=== PATIENT | male | born 1995 | race African-American/Black ===

== ENCOUNTER 2016-08-31 18:07 | Inpatient (IN) | payer OTHER ==
[~2016-08-31] VITALS: Ht 177.8 cm; Wt 91.9 kg
[2016-08-31 18:08] VITALS: BP 162/88; PULSE 68; RESP 12; TEMP 98.4; O2SAT 97
--- NOTE | 2016-08-31 21:40 | PD ---
HPI Chief Complaint: Complaint Time Seen by Provider: 21:40 Travel History International Travel<30 days: No Contact w/Intl Traveler<30days: No Traveled to known affect area: No History of Present Illness HPI 21 year old male with no significant history presents to the ED for evaluation of dark brown urine x 1 today, myalgias and swelling of his proximal upper extremities noticed two days ago. Patient states they noticed this today. Patient states he has otherwise been healthy. 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 He believes he has been drinking enough water but isn't sure. Denies any recent illnesses, fever, or chills. Denies any penile discharge. No burning with urination. No abdominal pain, nausea, vomiting. No other symptoms to report. PFSH Past Medical History Medical History: Denies Significant Hx Past Surgical History Other Surgery: Yes Social History Alcohol Use: Yes Tobacco Use: No Substance Use: No Allergies-Medications (Allergen,Severity, Reaction): Coded Allergies: No Known Allergies (Unverified , 08/31/16) Reported Meds & Prescriptions Reported Meds & Active Scripts Active No Active Prescriptions or Reported Medications Review of Systems Except as stated in HPI: all other systems reviewed are Neg Physical Exam Narrative GENERAL: Well-nourished male patient, ambulatory and in no acute distress SKIN: Warm and dry. HEAD: Atraumatic. Normocephalic. EYES: Pupils equal and round. No scleral icterus. No injection or drainage. ENT: No nasal bleeding or discharge. Mucous membranes pink and moist. NECK: Trachea midline. No JVD. CARDIOVASCULAR: Regular rate and rhythm. No murmur appreciated. RESPIRATORY: No accessory muscle use. Clear to auscultation. Breath sounds equal bilaterally. GASTROINTESTINAL: Abdomen soft, non-tender, nondistended. Hepatic and splenic margins not palpable. MUSCULOSKELETAL: No obvious deformities. No clubbing. No cyanosis. Tenderness elicited to palpation of the proximal upper extremities and shoulders with non pitting edema noted of the bilateral upper extremities NEUROLOGICAL: Awake and alert. No obvious cranial nerve deficits. Motor grossly within normal limits. Normal speech. PSYCHIATRIC: Appropriate mood and affect; insight and judgment normal. Data Data Last Documented VS Vital Signs Date Time Temp Pulse Resp B/P Pulse Ox O2 Delivery O2 Flow Rate FiO2 08/31/16 18:08 98.4 68 12 162/88 97 Room Air Orders Iv Access Insert/Monitor (08/31/16 21:39) Complete Blood Count With Diff (08/31/16 21:39) Basic Metabolic Panel (Bmp) (08/31/16 21:39) Creatine Kinase (Cpk) (08/31/16 21:39) Urinalysis - C+S If Indicated (08/31/16 21:39) Sodium Chlor 0.9% 1000 Ml Inj (Ns 1000 M (08/31/16 21:45) Sodium Chlor 0.9% 1000 Ml Inj (Ns 1000 M (08/31/16 21:45) CKMB (08/31/16 22:05) CKMB% (08/31/16 22:05) Sodium Chlor 0.9% 1000 Ml Inj (Ns 1000 M (09/01/16 00:15) Admit Order (Ed Use Only) (09/01/16 00:24) Labs Laboratory Tests Test 08/31/16 22:05 White Blood Count 13.7 TH/MM3 Red Blood Count 5.31 MIL/MM3 Hemoglobin 16.1 GM/DL Hematocrit 47.3 % Mean Corpuscular Volume 89.0 FL Mean Corpuscular Hemoglobin 30.3 PG Mean Corpuscular Hemoglobin 34.1 % Concent Red Cell Distribution Width 13.7 % Platelet Count 245 TH/MM3 Mean Platelet Volume 9.0 FL Neutrophils (%) (Auto) 72.2 % Lymphocytes (%) (Auto) 22.0 % Monocytes (%) (Auto) 4.1 % Eosinophils (%) (Auto) 1.3 % Basophils (%) (Auto) 0.4 % Neutrophils # (Auto) 9.9 TH/MM3 Lymphocytes # (Auto) 3.0 TH/MM3 Monocytes # (Auto) 0.6 TH/MM3 Eosinophils # (Auto) 0.2 TH/MM3 Basophils # (Auto) 0.1 TH/MM3 CBC Comment DIFF FINAL Differential Comment Urine Color DARK-RED Urine Turbidity HAZY Urine pH 6.0 Urine Specific [place] 1.036 Urine Protein 100 mg/dL Urine Glucose (UA) NEG mg/dL Urine Ketones TRACE mg/dL Urine Occult Blood LARGE Urine Nitrite NEG Urine Bilirubin NEG Urine Urobilinogen LESS THAN 2.0 MG/DL Urine Leukocyte Esterase TRACE Urine RBC LESS THAN 1 /hpf Urine WBC 3 /hpf Urine Bacteria RARE /hpf Urine Mucus MANY /lpf Microscopic Urinalysis Comment CULT NOT INDICATED Sodium Level 138 MEQ/L Potassium Level 4.2 MEQ/L Chloride Level 103 MEQ/L Carbon Dioxide Level 29.6 MEQ/L Anion Gap 5 MEQ/L Blood Urea Nitrogen 14 MG/DL Creatinine 1.16 MG/DL Estimat Glomerular Filtration 96 ML/MIN Rate Random Glucose 98 MG/DL Calcium Level 8.5 MG/DL Total Creatine Kinase GREATER THAN 31315 U/L Creatine Kinase MB 32.0 NG/ML Creatine Kinase MB % 0.0 % MDM Medical Decision Making Medical Screen Exam Complete: Yes Emergency Medical Condition: Yes Medical Record Reviewed: Yes Differential Diagnosis rhabdomyolysis versus electrolyte abnormality versus influenza versus viral syndrome versus UTI Narrative Course 21-year-old male presents to emergency department for evaluation of dark urine, shoulder pain, and swelling of the proximal upper extremities. Vital signs are stable. Patient is given normal saline bolus. Patient does appear overall well however does have noted upper extremity edema. CBCs with mild leukocytosis of 13.7. BMP is without acute concern. Urinalysis is hazy, dark red, proteinuria 100, trace ketones, large occult blood, trace leukocyte E[place]ace , less than 1 RBC, rare bacteria, many mucus. Culture is not indicated. Total CK is greater than 14,000. I discussed the patient my attending physician Dr. Parsons. Patient is discussed with Dr. Boyer. Patient will be admitted to her service. Diagnosis Primary Impression: Rhabdomyolysis Qualified Code: M62.82 - Non-traumatic rhabdomyolysis Admitting Information Admitting Physician Requests: Admit Scripts No Active Prescriptions or Reported Meds Condition: Stable Aura Harris Aug 31, 2016 21:40
[2016-08-31] MEDS ORDERED: SODIUM CHLOR 0.9% 1000 ML INJ 1,000 ML IV ONE ×2 (21:45)
[2016-08-31 22:28] LABS: AUTOMATED NEUTROPHIL # 9.9 TH/MM3 (1.8-7.7); BASOPHIL # 0.1 TH/MM3 (0-0.2); BASOPHIL % 0.4 % (0.0-2.0); EOSINOPHIL # 0.2 TH/MM3 (0-0.4); EOSINOPHIL % 1.3 % (0.0-4.0); HEMATOCRIT 47.3 % (39.0-51.0); HEMO FLAGS DIFF FINAL; MEAN CORPUSCULAR HEMOGLOBIN 30.3 PG (27.0-34.0); MEAN CORPUSCULAR HGB CONC 34.1 % (32.0-36.0); MONO % 4.1 % (0.0-8.0); NEUT % 72.2 % (16.0-70.0); PLATELET COUNT 245 TH/MM3 (150-450); RED BLOOD COUNT 5.31 MIL/MM3 (4.50-5.90); RED CELL DISTRIBUTION WIDTH 13.7 % (11.6-17.2); WHITE BLOOD COUNT 13.7 TH/MM3 (4.0-11.0)
[2016-08-31 22:30] LABS: BACTERIA, URINE RARE /hpf; BLOOD, URINE LARGE (NEG); COMMENT (UR) CULT NOT INDICATED; CULTURE IF INDICATED CULT NOT INDICATED; GLUCOSE,URINE NEG (NEG); KETONE, URINE TRACE mg/dL (NEG); MUCUS URINE MANY /lpf (OCC); NITRITE,URINE NEG (NEG)
[2016-08-31 22:34] LABS: URINE COLOR DARK-RED (YELLW/STRAW)
[2016-08-31 23:14] LABS: ANION GAP 5 MEQ/L (5-15); BICARBONATE 29.6 MEQ/L (21.0-32.0); BLOOD UREA NITROGEN 14 MG/DL (7-18); CHLORIDE 103 MEQ/L (98-107); GLOMERULAR FILTRATION RATE 96 ML/MIN (>89); POTASSIUM 4.2 MEQ/L (3.5-5.1); SODIUM (NA) 138 MEQ/L (136-145)
[2016-09-01] VITALS (7 sets, daily range): BP systolic 129–157; BP diastolic 79–97; PULSE 67–89; RESP 16–18; TEMP 97.4–98.8; O2SAT 98–100
[2016-09-01 00:10] LABS: CREATINE KINASE GREATER THAN 14000 U/L (39-308)
[2016-09-01] MEDS ORDERED: SODIUM CHLOR 0.9% 1000 ML INJ 1,000 ML IV ONE (00:15)
[2016-09-01] MEDS: SODIUM CHLOR 0.9% 1000 ML INJ 1,000 ML IV SCH ×5 (01:02→19:05)
[2016-09-01] MEDS ORDERED: SODIUM CHLORIDE 0.9% FLUSH 5 ML FLUSH FLUSH PRN (01:15)
[2016-09-01] MEDS ORDERED: NALOXONE HCL 0.4 MG/ML AMP IV PRN (01:15)
--- NOTE | 2016-09-01 03:02 | HHI.HP ---
[facility] No Primary Care Physician Admission Diagnosis rhabdomyolysis Diagnoses: Chief Complaint: Urine color is dark, cannot lift up my arms Travel History International Travel<30 Days: No Contact w/Intl Traveler <30 Da: No Traveled to Known Affected Are: No History of Present Illness History from patient, ER physician to medication, and review of medical records. Patient reported that he initially came to the hospital because his urine color was so dark that it looks like [employer]. He reports he also was not able to lift up his arms because they have been so painful. He states his arm size is actually increased bilaterally. He admits to working out with heavy weight lifting about 3-4 hours a day. Denies fever. denies any nausea/vomiting/diarrhea/urinary burning or pain on urination. denies any decrease in urine. Denies any chest pain/palpitations/shortness of breath/syncopal episodes. Denies any falls or seizures. Denies any hematemesis/hematochezia/melena/hematuria. Review of Systems Other 12 point review of system is obtained and is negative apart from what is mentioned in HPI Past Family Social History Past Medical History None Past Surgical History None Reported Medications None Allergies: Coded Allergies: No Known Allergies (Unverified , 08/31/16) Family History Reports a family history of diabetes in maternal grandmother and paternal grandfather Social History Denies smoking/alcohol abuse/drug abuse. Physical Exam Vital Signs Vital Signs Date Time Temp Pulse Resp B/P Pulse Ox O2 Delivery O2 Flow Rate FiO2 08/31/16 18:08 98.4 68 12 162/88 97 Room Air Physical Exam GENERAL: This is a well-nourished, well-developed patient, in no apparent distress. SKIN: No rashes, ecchymoses or lesions. Cool and dry. HEAD: Atraumatic. Normocephalic. No temporal or scalp tenderness. EYES: No scleral icterus. No injection or drainage. ENT: Nose without bleeding, purulent drainage or septal hematoma. Airway patent. NECK: Trachea midline. No JVD CARDIOVASCULAR: Regular rate and rhythm without murmurs, gallops, or rubs. RESPIRATORY: Clear to auscultation. Breath sounds equal bilaterally. No wheezes , rales, or rhonchi. GASTROINTESTINAL: Abdomen soft, non-tender, nondistended. No guarding. MUSCULOSKELETAL: Extremities without clubbing, cyanosis, or edema. No calf tenderness. Bilateral upper extremity biceps with significant tenderness even on light palpation. Patient is able to move his arms [id number] but was having quite a bit of difficulty lifting his arms against gravity. NEUROLOGICAL: Awake and alert. Motor and sensory grossly within normal limits apart from bilateral upper extremity against gravity as above. Normal speech. Laboratory Laboratory Tests Test 08/31/16 22:05 White Blood Count 13.7 Red Blood Count 5.31 Hemoglobin 16.1 Hematocrit 47.3 Mean Corpuscular Volume 89.0 Mean Corpuscular Hemoglobin 30.3 Mean Corpuscular Hemoglobin 34.1 Concent Red Cell Distribution Width 13.7 Platelet Count 245 Mean Platelet Volume 9.0 Neutrophils (%) (Auto) 72.2 Lymphocytes (%) (Auto) 22.0 Monocytes (%) (Auto) 4.1 Eosinophils (%) (Auto) 1.3 Basophils (%) (Auto) 0.4 Neutrophils # (Auto) 9.9 Lymphocytes # (Auto) 3.0 Monocytes # (Auto) 0.6 Eosinophils # (Auto) 0.2 Basophils # (Auto) 0.1 CBC Comment DIFF FINAL Differential Comment Urine Color DARK-RED Urine Turbidity HAZY Urine pH 6.0 Urine Specific [place] 1.036 Urine Protein 100 Urine Glucose (UA) NEG Urine Ketones TRACE Urine Occult Blood LARGE Urine Nitrite NEG Urine Bilirubin NEG Urine Urobilinogen LESS THAN 2.0 Urine Leukocyte Esterase TRACE Urine RBC LESS THAN 1 Urine WBC 3 Urine Bacteria RARE Urine Mucus MANY Microscopic Urinalysis Comment CULT NOT INDICATED Sodium Level 138 Potassium Level 4.2 Chloride Level 103 Carbon Dioxide Level 29.6 Anion Gap 5 Blood Urea Nitrogen 14 Creatinine 1.16 Estimat Glomerular Filtration 96 Rate Random Glucose 98 Calcium Level 8.5 Total Creatine Kinase GREATER THAN 44109 Creatine Kinase MB 32.0 Creatine Kinase MB % 0.0 Result Diagram: 08/31/16220408/31/162204 Assessment and Plan Problem List: (1) Rhabdomyolysis ICD Code: M62.82 Status: Acute Assessment and Plan Impression: Rhabdomyolysis Leukocytosis with left shiftlikely nonspecificstress-induced/dehydration Plan: Aggressive IV hydration. Patient received 3 L normal saline bolus in ER. Will continue hydration at 250 cc per hour. Patient's serum bicarbonate is almost 30. His renal function is normal as well. At this point, I would not start him on bicarbonate drip yet. However if he does not improve or if renal function worsens, we'll consider starting him on IV bicarbonate drip. BMP in a.m. DVT prophylaxiswith Lovenox. Discussed Condition With Patient, ER physician, patient's nurse Physician Certification 2 Midnight Certification Type: Admission for Inpatient Services Order for Inpatient Services The services are ordered in accordance with Medicare regulations or non- Medicare payer requirements, as applicable. In the case of services not specified as inpatient-only, they are appropriately provided as inpatient services in accordance with the 2-midnight benchmark. Estimated LOS (days): 3 days is the estimated time the patient will need to remain in the hospital, assuming treatment plan goals are met and no additional complications. Post-Hospital Plan: Home Problem Qualifiers (1) Rhabdomyolysis: Qualified Code: M62.82 - Non-traumatic rhabdomyolysis Abimbola Boyer MD Sep 01, 2016 03:02
[2016-09-01 04:41] LABS: CREATINE KINASE GREATER THAN 14000 U/L (39-308)
[2016-09-01 05:19] LABS: CKMB 25.3 NG/ML (0.5-3.6)
[2016-09-01] MEDS: ENOXAPARIN SODIUM 40 MG/0.4 ML SYRINGE SQ SCH (08:46)
[2016-09-01] MEDS: SODIUM CHLORIDE 0.9% FLUSH 5 ML FLUSH FLUSH SCH ×2 (08:46→21:00)
--- NOTE | 2016-09-01 09:40 | HHI.PR ---
Subjective Remarks Patient states he has continued muscle aches. No symptom improvement overnight. He said mild swelling of the left arm with IV fluid hydration. Objective Vitals Vital Signs Date Time Temp Pulse Resp B/P Pulse Ox O2 Delivery O2 Flow Rate FiO2 09/01/16 07:30 98.0 81 18 152/79 98 Room Air 09/01/16 06:00 67 18 129/95 99 Room Air 08/31/16 18:08 98.4 68 12 162/88 97 Room Air I/O 08/31/16 08/31/16 08/31/16 09/01/16 09/01/16 09/01/16 07:00 15:00 23:00 07:00 15:00 23:00 Intake Total 200 ml Output Total 250 ml 400 ml Balance -250 ml -200 ml Intake Oral 200 ml Output Urine Total 250 ml 400 ml # Voids 1 # Bowel Movements 0 Result Diagram: 08/31/16220408/31/162204 Objective Remarks GENERAL: This is a well-nourished, well-developed , muscular patient, in no apparent distress. CARDIOVASCULAR: Regular rate and rhythm RESPIRATORY: Clear to auscultation. Breath sounds equal bilaterally. No wheezes , rales, or rhonchi. GASTROINTESTINAL: Abdomen soft, non-tender, nondistended. Normal active bowel sounds MUSCULOSKELETAL: Extremities without clubbing, cyanosis, or edema. NEURO: Alert & Oriented x4 to person, place, time, situation. Moves all ext x4 A/P Problem List: (1) Rhabdomyolysis ICD Code: M62.82 Status: Acute Assessment and Plan 1. Rhabdomyolysis - continue aggressive IV fluid hydration and monitoring his CPK. Continue to monitor renal function and patient's clinical progression. Patient has been working out extensively and training. Safe practices for work all and training and exercise education provided today and prevention of future rhabdomyolysis. Patient states that he has been training indoors has not been exposed to outside heat. 2. Leukocytosis with left shiftlikely nonspecificstress-induced/dehydration 3. DVT prophylaxisLovenox. Problem Qualifiers (1) Rhabdomyolysis: Qualified Code: M62.82 - Non-traumatic rhabdomyolysis Maryann Nuno MD Sep 01, 2016 09:40
[2016-09-01 10:15] LABS: CREATINE KINASE GREATER THAN 14000 U/L (39-308)
[2016-09-01 10:29] LABS: CKMB 28.2 NG/ML (0.5-3.6)
[2016-09-02] VITALS: BP 146/93; PULSE 64; RESP 16; TEMP 98; O2SAT 100
[2016-09-02] MEDS: SODIUM CHLOR 0.9% 1000 ML INJ 1,000 ML IV SCH ×4 (01:35→18:20)
[2016-09-02 04:00] VITALS: BP 142/67; PULSE 82; RESP 16; TEMP 96.6; O2SAT 96
[2016-09-02 07:43] LABS: POTASSIUM 3.9 MEQ/L (3.5-5.1)
[2016-09-02 08:00] VITALS: BP 130/81; PULSE 72; RESP 18; TEMP 97.6; O2SAT 100
[2016-09-02] MEDS: SODIUM CHLORIDE 0.9% FLUSH 5 ML FLUSH FLUSH SCH ×2 (09:00→21:00)
[2016-09-02] MEDS: ENOXAPARIN SODIUM 40 MG/0.4 ML SYRINGE SQ SCH (09:44)
[2016-09-02 11:41] LABS: ANION GAP 7 MEQ/L (5-15); BICARBONATE 29.4 MEQ/L (21.0-32.0); BLOOD UREA NITROGEN 5 MG/DL (7-18); CHLORIDE 104 MEQ/L (98-107); GLOMERULAR FILTRATION RATE 142 ML/MIN (>89); POTASSIUM 3.8 MEQ/L (3.5-5.1); SODIUM (NA) 140 MEQ/L (136-145)
[2016-09-02 11:50] LABS: CREATINE KINASE GREATER THAN 14000 U/L (39-308)
[2016-09-02 12:00] VITALS: BP 144/78; PULSE 68; RESP 18; TEMP 97.5; O2SAT 99
[2016-09-02 12:37] LABS: CKMB 21.6 NG/ML (0.5-3.6)
--- NOTE | 2016-09-02 15:01 | HHI.PR ---
Subjective Remarks Doing much better. Urine has cleared up a little bit, urine is not as dark. Less pain. Ambulate in the room. No other complaints Objective Vitals Vital Signs Date Time Temp Pulse Resp B/P Pulse Ox O2 Delivery O2 Flow Rate FiO2 09/02/16 12:00 97.5 68 18 144/78 99 09/02/16 08:00 97.6 72 18 130/81 100 09/02/16 04:00 96.6 82 16 142/67 96 09/02/16 00:00 98.0 64 16 146/93 100 09/01/16 20:00 98.8 67 16 157/97 100 09/01/16 15:14 97.4 68 18 152/81 100 I/O 09/01/16 09/01/16 09/01/16 09/02/16 09/02/16 09/02/16 07:00 15:00 23:00 07:00 15:00 23:00 Intake Total 380 ml 350 ml 3300 ml 2614 ml Output Total 250 ml 3450 ml 1700 ml 1200 ml Balance -250 ml -3070 ml 350 ml 1600 ml 1414 ml Intake Oral 380 ml 350 ml 300 ml 840 ml IV Total 3000 ml 1774 ml Output Urine Total 250 ml 3450 ml 1700 ml 1200 ml # Voids 6 1 # Bowel Movements 0 0 0 Result Diagram: 08/31/16220409/02/16 1012 Other Results Item Value Date Time Total Creatine Kinase GREATER THAN 71370 U/L H 09/02/16 1012 Creatine Kinase MB 21.6 NG/ML H 09/02/16 1012 Objective Remarks GENERAL: This is a well-nourished, well-developed , muscular patient, in no apparent distress. CARDIOVASCULAR: Regular rate and rhythm RESPIRATORY: Clear to auscultation. Breath sounds equal bilaterally. No wheezes , rales, or rhonchi. GASTROINTESTINAL: Abdomen soft, non-tender, nondistended. Normal active bowel sounds MUSCULOSKELETAL: Extremities without clubbing, cyanosis, or edema. NEURO: Alert & Oriented x4 to person, place, time, situation. Moves all ext x4 A/P Problem List: (1) Rhabdomyolysis ICD Code: M62.82 Status: Acute Assessment and Plan 1. Rhabdomyolysis - continue aggressive IV fluid hydration and monitoring his CPK. Continue to monitor renal function and patient's clinical progression. Patient has been working out extensively and training. Safe practices for work all and training and exercise education provided today and reinforced and prevention of future rhabdomyolysis. Patient states that he has been training indoors has not been exposed to outside heat. Clinically patient has been improving with clearing of his urine. 2. Leukocytosis with left shiftlikely nonspecificstress-induced/dehydration 3. DVT prophylaxisLovenox. Discharge Planning Possible discharged home in the morning if clinically improving and CPK trends down. Problem Qualifiers (1) Rhabdomyolysis: Qualified Code: M62.82 - Non-traumatic rhabdomyolysis Maryann Nuno MD Sep 02, 2016 15:01
[2016-09-02 15:54] VITALS: BP 142/69; PULSE 84; RESP 18; TEMP 97.6; O2SAT 100
[2016-09-02 21:03] VITALS: BP 164/86; PULSE 81; RESP 18; TEMP 97.5; O2SAT 98
[2016-09-03] VITALS (7 sets, daily range): BP systolic 128–149; BP diastolic 68–80; PULSE 54–80; RESP 16–18; TEMP 96.5–98.4; O2SAT 97–100
[2016-09-03] MEDS: SODIUM CHLOR 0.9% 1000 ML INJ 1,000 ML IV SCH ×3 (00:06→09:53)
[2016-09-03 07:53] LABS: CREATINE KINASE GREATER THAN 14000 U/L (39-308)
[2016-09-03 08:12] LABS: CKMB 14.4 NG/ML (0.5-3.6)
[2016-09-03] MEDS: SODIUM CHLORIDE 0.9% FLUSH 5 ML FLUSH FLUSH SCH ×2 (09:53→21:00)
[2016-09-03] MEDS: ENOXAPARIN SODIUM 40 MG/0.4 ML SYRINGE SQ SCH (09:53)
[2016-09-03] MEDS ORDERED: DO NOT ADM ANY ANTICOAGULANT DRUGS XX PRN (10:45)
[2016-09-03 11:24] LABS: BASOPHIL % 0.2 % (0.0-2.0); EOSINOPHIL # 0.3 TH/MM3 (0-0.4); EOSINOPHIL % 3.8 % (0.0-4.0); HEMATOCRIT 41.3 % (39.0-51.0); HEMO FLAGS DIFF FINAL; LYMPHOCYTE # 1.3 TH/MM3 (1.0-4.8); MEAN CELL VOLUME 88.7 FL (80.0-100.0); MEAN CORPUSCULAR HEMOGLOBIN 30.2 PG (27.0-34.0); MONO % 4.5 % (0.0-8.0); NEUT % 72.5 % (16.0-70.0); PLATELET COUNT 180 TH/MM3 (150-450); RED BLOOD COUNT 4.66 MIL/MM3 (4.50-5.90); RED CELL DISTRIBUTION WIDTH 13.8 % (11.6-17.2); WHITE BLOOD COUNT 6.9 TH/MM3 (4.0-11.0)
[2016-09-03 11:27] LABS: PROTHROMBIN TIME - PATIENT 11.3 SEC (9.8-11.6)
[2016-09-03 11:47] LABS: FREE T4 1.04 NG/DL (0.76-1.46); INDIRECT BILIRUBIN 0.5 MG/DL (0.0-0.8); TOTAL BILIRUBIN ADULT 0.6 MG/DL (0.2-1.0)
[2016-09-03] MEDS: SODIUM BICARBONATE IV SCH ×9 (11:52→23:55)
[2016-09-03] MEDS: [UNRECOGNIZED DRUG - OTHER] IV SCH ×9 (11:52→23:55)
[2016-09-03] MEDS: DEXTROSE 5% IV SCH ×9 (11:52→23:55)
[2016-09-03] MEDS: POTASSIUM CHLORIDE IV SCH ×9 (11:52→23:55)
[2016-09-03 12:15] LABS: AMPHETAMINE, URINE NEG (NEG); BARBITURATES, URINE NEG (NEG); COCAINE, URINE NEG (NEG)
[2016-09-03 12:19] LABS: WESTERGREN SEDIMENTATION RATE 8 mm/hr (0-15)
--- NOTE | 2016-09-03 18:46 | HHI.PR ---
Subjective Remarks Seen this afternoon. Continues to report aching pain in bilateral biceps and forearms, however this is improving. Says he is eating well. Denies any chest pain or shortness of breath. Denies any other muscle pain. She reports urine is clear now. Denies constipation Objective Vital Signs Date Time Temp Pulse Resp B/P Pulse Ox O2 Delivery O2 Flow Rate FiO2 09/03/16 16:00 98.4 66 18 138/69 100 09/03/16 12:00 97.0 68 18 149/75 97 09/03/16 08:00 97.1 54 18 144/76 100 09/03/16 05:03 96.5 71 17 128/71 99 09/03/16 04:00 96.5 67 16 128/71 100 09/03/16 00:00 96.8 80 18 128/68 100 09/02/16 21:03 97.5 81 18 164/86 98 I/O 09/02/16 09/02/16 09/02/16 09/03/16 09/03/16 09/03/16 07:00 15:00 23:00 07:00 15:00 23:00 Intake Total 3300 ml 2614 ml 480 ml 2880 ml 5827 ml Output Total 1700 ml 1200 ml 900 ml 825 ml 1000 ml Balance 1600 ml 1414 ml -420 ml 2055 ml 4827 ml Intake Oral 300 ml 840 ml 480 ml 480 ml 1680 ml IV Total 3000 ml 1774 ml 2400 ml 4147 ml Output Urine Total 1700 ml 1200 ml 900 ml 825 ml 1000 ml # Voids 1 # Bowel Movements 0 1 Result Diagram: 09/03/16 1104 09/02/16 1012 Objective Remarks GENERAL: Patient lying in bed. Appears comfortable. Alert and oriented 3. SKIN: Warm and dry. HEAD: Normocephalic. EYES: No scleral icterus. No injection or drainage. NECK: Supple, trachea midline. No JVD or lymphadenopathy. CARDIOVASCULAR: Regular rate and rhythm without murmurs, gallops, or rubs. RESPIRATORY: Breath sounds equal bilaterally. No accessory muscle use. GASTROINTESTINAL: Abdomen soft, non-tender, nondistended. MUSCULOSKELETAL: No cyanosis, or edema. Bilateral biceps and forearms appear to be swollen, tender to palpation bilaterally. BACK: Nontender without obvious deformity. No CVA tenderness. A/P Assessment and Plan Rhabdomyolysis. Secondary to aggressive training and weight lifting. Continue IV fluids. -09/03switch to D5 bicarbonate with potassium (noticed that ketones were elevated on urinalysis on admission. Starvation can be associated with exacerbating some forms of myopathy-) Transaminitis. Likely false secondary to CK elevation. Liver ultrasound and hepatitis profile pending. Leukocytosis. Resolved. Likely secondary to stress. No signs of infection. Prophylaxis. Continue Lovenox. Discharge Planning Continue to monitor renal function closely. Can discharge when CK improved. Expect about 3 days Ari Snowden MD Sep 03, 2016 18:46
[2016-09-04] VITALS (7 sets, daily range): BP systolic 117–156; BP diastolic 64–85; PULSE 54–100; RESP 16–18; TEMP 96.1–98.6; O2SAT 94–100
[2016-09-04] MEDS: DEXTROSE 5% IV SCH ×12 (06:09→23:43)
[2016-09-04] MEDS: POTASSIUM CHLORIDE IV SCH ×12 (06:09→23:43)
[2016-09-04] MEDS: [UNRECOGNIZED DRUG - OTHER] IV SCH ×12 (06:09→23:43)
[2016-09-04] MEDS: SODIUM BICARBONATE IV SCH ×12 (06:09→23:43)
[2016-09-04 06:32] LABS: AUTOMATED NEUTROPHIL # 3.4 TH/MM3 (1.8-7.7); BASOPHIL # 0.1 TH/MM3 (0-0.2); BASOPHIL % 1.8 % (0.0-2.0); EOSINOPHIL # 0.2 TH/MM3 (0-0.4); EOSINOPHIL % 3.9 % (0.0-4.0); HEMATOCRIT 38.6 % (39.0-51.0); HEMO FLAGS DIFF FINAL; LYMPH % 29.4 % (9.0-44.0); LYMPHOCYTE # 1.7 TH/MM3 (1.0-4.8); MEAN CELL VOLUME 88.2 FL (80.0-100.0); MEAN CORPUSCULAR HEMOGLOBIN 30.3 PG (27.0-34.0); MEAN CORPUSCULAR HGB CONC 34.4 % (32.0-36.0); MONO % 7.5 % (0.0-8.0); NEUT % 57.4 % (16.0-70.0); PLATELET COUNT 203 TH/MM3 (150-450); RED BLOOD COUNT 4.38 MIL/MM3 (4.50-5.90); RED CELL DISTRIBUTION WIDTH 13.6 % (11.6-17.2); WHITE BLOOD COUNT 5.9 TH/MM3 (4.0-11.0)
[2016-09-04 07:00] LABS: BICARBONATE 33.5 MEQ/L (21.0-32.0); MAGNESIUM 1.7 MG/DL (1.5-2.5); POTASSIUM 3.6 MEQ/L (3.5-5.1)
[2016-09-04] MEDS: ENOXAPARIN SODIUM 40 MG/0.4 ML SYRINGE SQ SCH (09:18)
[2016-09-04] MEDS: SODIUM CHLORIDE 0.9% FLUSH 5 ML FLUSH FLUSH SCH ×2 (09:19→21:00)
[2016-09-04 12:52] LABS: CREATINE KINASE GREATER THAN 14000 U/L (39-308)
[2016-09-04 13:07] LABS: CKMB 6.4 NG/ML (0.5-3.6)
[2016-09-05] VITALS (7 sets, daily range): BP systolic 116–165; BP diastolic 63–88; PULSE 50–84; RESP 14–20; TEMP 96.7–97.8; O2SAT 97–100
[2016-09-05] MEDS: SODIUM BICARBONATE IV SCH ×12 (04:32→22:00)
[2016-09-05] MEDS: POTASSIUM CHLORIDE IV SCH ×12 (04:32→22:00)
[2016-09-05] MEDS: DEXTROSE 5% IV SCH ×12 (04:32→22:00)
[2016-09-05] MEDS: [UNRECOGNIZED DRUG - OTHER] IV SCH ×12 (04:32→22:00)
[2016-09-05 08:18] LABS: ALT (GPT) 678 U/L (12-78); ANION GAP 4 MEQ/L (5-15); BICARBONATE 34.8 MEQ/L (21.0-32.0); BLOOD UREA NITROGEN 9 MG/DL (7-18); CHLORIDE 101 MEQ/L (98-107); GLOMERULAR FILTRATION RATE 155 ML/MIN (>89); POTASSIUM 3.7 MEQ/L (3.5-5.1); SODIUM (NA) 140 MEQ/L (136-145)
[2016-09-05 08:43] LABS: ALKALINE PHOSPHATASE 38 U/L (45-117); AST (GOT) 1574 U/L (15-37); TOTAL BILIRUBIN ADULT 0.5 MG/DL (0.2-1.0)
[2016-09-05 09:35] LABS: CREATINE KINASE GREATER THAN 14000 U/L (39-308)
[2016-09-05 09:36] LABS: CKMB 3.1 NG/ML (0.5-3.6)
[2016-09-05] MEDS: ENOXAPARIN SODIUM 40 MG/0.4 ML SYRINGE SQ SCH (09:38)
[2016-09-05] MEDS: SODIUM CHLORIDE 0.9% FLUSH 5 ML FLUSH FLUSH SCH ×2 (09:38→22:00)
--- NOTE | 2016-09-05 19:44 | HHI.PR ---
Subjective Remarks Date of service 09/04/16. Patient seen the morning of 09/04/16 Patient again says he feels well. Bilateral biceps and forearms continuing to feel better. Denies any other muscle pain. Objective Vital Signs Date Time Temp Pulse Resp B/P Pulse Ox O2 Delivery O2 Flow Rate FiO2 09/05/16 16:00 96.9 70 18 144/65 100 09/05/16 12:00 97.4 63 18 150/70 100 09/05/16 08:00 96.8 65 16 119/69 99 09/05/16 05:16 96.7 50 18 116/66 100 09/05/16 00:37 97.1 84 20 123/88 98 09/04/16 20:45 96.9 100 18 134/64 94 09/04/16 20:29 96.7 78 16 117/70 99 I/O 09/04/16 09/04/16 09/04/16 09/05/16 09/05/16 09/05/16 07:00 15:00 23:00 07:00 15:00 23:00 Intake Total 2320 ml 2077 ml 2541 ml Output Total 1200 ml Balance 1120 ml 2077 ml 2541 ml Intake Oral 720 ml 480 ml 720 ml IV Total 1600 ml 1597 ml 1821 ml Output Urine Total 1200 ml # Voids 3 5 # Bowel Movements 0 Result Diagram: 09/04/16 0556 09/05/16 0644 Objective Remarks GENERAL: Patient lying in bed. Appears comfortable. Alert and oriented 3. Bilateral arm edema and swelling continues to improve. SKIN: Warm and dry. HEAD: Normocephalic. EYES: No scleral icterus. No injection or drainage. NECK: Supple, trachea midline. No JVD. CARDIOVASCULAR: Regular rate and rhythm without murmurs, gallops, or rubs. RESPIRATORY: Breath sounds equal bilaterally. No accessory muscle use. GASTROINTESTINAL: Abdomen soft, non-tender, nondistended. MUSCULOSKELETAL: No cyanosis, or edema. Bilateral biceps and forearms appear to be swollen, tender to palpation bilaterally, however this continues to improve.. BACK: Nontender without obvious deformity. No CVA tenderness. A/P Assessment and Plan Rhabdomyolysis. Secondary to aggressive training and weight lifting. Continue IV fluids. -09/03switch to D5 bicarbonate with potassium (noticed that ketones were elevated on urinalysis on admission. Starvation can be associated with exacerbating some forms of myopathy-) -09/04. Continue D5 bicarbonate fluids. Kidney function continues normal. Transaminitis. Likely false secondary to CK elevation. Liver ultrasound and hepatitis profile pending. Leukocytosis. Resolved. Likely secondary to stress. No signs of infection. Prophylaxis. Continue Lovenox. Discharge Planning Continue to monitor renal function closely. Can discharge when CK improved. Expect about 3 days Ari Snowden MD Sep 05, 2016 19:44
--- NOTE | 2016-09-05 19:54 | HHI.PR ---
Subjective Remarks Patient seen today around 2 PM. Says he is feeling well. Bilateral arms and forearms continued to be less painful. Positive bowel movement. No other complaints. Objective Vital Signs Date Time Temp Pulse Resp B/P Pulse Ox O2 Delivery O2 Flow Rate FiO2 09/05/16 16:00 96.9 70 18 144/65 100 09/05/16 12:00 97.4 63 18 150/70 100 09/05/16 08:00 96.8 65 16 119/69 99 09/05/16 05:16 96.7 50 18 116/66 100 09/05/16 00:37 97.1 84 20 123/88 98 09/04/16 20:45 96.9 100 18 134/64 94 09/04/16 20:29 96.7 78 16 117/70 99 I/O 09/04/16 09/04/16 09/04/16 09/05/16 09/05/16 09/05/16 07:00 15:00 23:00 07:00 15:00 23:00 Intake Total 2320 ml 2077 ml 2541 ml Output Total 1200 ml Balance 1120 ml 2077 ml 2541 ml Intake Oral 720 ml 480 ml 720 ml IV Total 1600 ml 1597 ml 1821 ml Output Urine Total 1200 ml # Voids 3 5 # Bowel Movements 0 Result Diagram: 09/04/16 0556 09/05/16 0644 Objective Remarks GENERAL: Patient lying in bed. Appears comfortable. Alert and oriented 3. Bilateral arm edema and swelling continues to improve again today. SKIN: Warm and dry. HEAD: Normocephalic. EYES: No scleral icterus. No injection or drainage. NECK: Supple, trachea midline. No JVD. CARDIOVASCULAR: Regular rate and rhythm without murmurs, gallops, or rubs. RESPIRATORY: Breath sounds equal bilaterally. No accessory muscle use. GASTROINTESTINAL: Abdomen soft, non-tender, nondistended. MUSCULOSKELETAL: No cyanosis, or edema. Bilateral biceps and forearms appear to be swollen, tender to palpation bilaterally, however this again continues to improve.. BACK: Nontender without obvious deformity. No CVA tenderness. A/P Assessment and Plan Rhabdomyolysis. Secondary to aggressive training and weight lifting. Continue IV fluids. -10switch to D5 bicarbonate with potassium (noticed that ketones were elevated on urinalysis on admission. Starvation can be associated with exacerbating some forms of myopathy-) -09/04. Continue D5 bicarbonate fluids. Kidney function continues normal. -09/05 CK continues elevated above measurable range. Expect that even though CK is above the measurable range, that it is improving; CK-MB, as well as AST are improving, indicating that CK must be coming down as well. We will continue to monitor. Patient can likely go home when CK is below 5000. Transaminitis. Likely false secondary to CK elevation. Liver ultrasound and hepatitis profile pending. Leukocytosis. Resolved. Likely secondary to stress. No signs of infection. Prophylaxis. Continue Lovenox. Discharge Planning Continue to monitor renal function closely. Can discharge when CK improved. Expect about 3 days Ari Snowden MD Sep 05, 2016 19:54
[2016-09-06 03:35] VITALS: BP 106/57; PULSE 60; RESP 14; TEMP 97.5; O2SAT 100
[2016-09-06] MEDS: [UNRECOGNIZED DRUG - OTHER] IV SCH ×15 (04:21→20:48)
[2016-09-06] MEDS: DEXTROSE 5% IV SCH ×15 (04:21→20:48)
[2016-09-06] MEDS: POTASSIUM CHLORIDE IV SCH ×15 (04:21→20:48)
[2016-09-06] MEDS: SODIUM BICARBONATE IV SCH ×15 (04:21→20:48)
[2016-09-06 08:00] VITALS: BP 110/62; PULSE 54; RESP 18; TEMP 97.2; O2SAT 99
[2016-09-06] MEDS: SODIUM CHLORIDE 0.9% FLUSH 5 ML FLUSH FLUSH SCH ×2 (09:00→19:25)
--- NOTE | 2016-09-06 10:10 | HHI.PR ---
Subjective Remarks Follow-up rhabdomyolysis 09/06/16-patient seen and examined, denies any muscle aches and no acute event overnight. CK on 09/05/16 still elevated Objective Vitals Vital Signs Date Time Temp Pulse Resp B/P Pulse Ox O2 Delivery O2 Flow Rate FiO2 09/06/16 03:35 97.5 60 14 106/57 100 09/05/16 23:30 97.6 77 18 133/63 97 09/05/16 19:45 97.8 70 14 165/85 100 09/05/16 16:00 96.9 70 18 144/65 100 09/05/16 12:00 97.4 63 18 150/70 100 I/O 09/05/16 09/05/16 09/05/16 09/06/16 09/06/16 09/06/16 07:00 15:00 23:00 07:00 15:00 23:00 Intake Total 2541 ml 1600 ml 2320 ml Balance 2541 ml 1600 ml 2320 ml Intake Oral 720 ml 720 ml IV Total 1821 ml 1600 ml 1600 ml # Voids 5 3 # Bowel Movements 0 Result Diagram: 09/04/16 0556 09/05/16 0644 Objective Remarks GENERAL: NAD SKIN: Warm and dry. HEAD: Normocephalic. EYES: No scleral icterus. No injection or drainage. NECK: Supple, trachea midline. No JVD or lymphadenopathy. CARDIOVASCULAR: Regular rate and rhythm without murmurs, gallops, or rubs. RESPIRATORY: Breath sounds equal bilaterally. No accessory muscle use. GASTROINTESTINAL: Abdomen soft, non-tender, nondistended. MUSCULOSKELETAL: No cyanosis, or edema. BACK: Nontender without obvious deformity. No CVA tenderness. A/P Problem List: (1) Rhabdomyolysis ICD Code: M62.82 Status: Acute (2) Transaminitis ICD Code: R74.0 Status: Acute Assessment and Plan 21-year-old male with Rhabdomyolysis. Secondary to aggressive training and weight lifting. Continue D5 bicarbonate with potassium . Monitor CK Transaminitis. Likely false secondary to CK elevation. Check Liver ultrasound and hepatitis profile pending. Leukocytosis. Resolved. Likely secondary to stress. Prophylaxis. Continue Lovenox. Problem Qualifiers (1) Rhabdomyolysis: Qualified Code: M62.82 - Non-traumatic rhabdomyolysis Ab Fink MD Sep 06, 2016 10:09
[2016-09-06] MEDS: ENOXAPARIN SODIUM 40 MG/0.4 ML SYRINGE SQ SCH (11:14)
[2016-09-06 12:00] VITALS: BP 126/79; PULSE 71; RESP 18; TEMP 98.2; O2SAT 98
[2016-09-06 12:18] LABS: ALT (GPT) 691 U/L (12-78); ANION GAP 5 MEQ/L (5-15); BICARBONATE 33.8 MEQ/L (21.0-32.0); BLOOD UREA NITROGEN 8 MG/DL (7-18); CHLORIDE 99 MEQ/L (98-107); GLOMERULAR FILTRATION RATE 142 ML/MIN (>89); POTASSIUM 3.7 MEQ/L (3.5-5.1); SODIUM (NA) 138 MEQ/L (136-145)
[2016-09-06 12:44] LABS: ALKALINE PHOSPHATASE 44 U/L (45-117); AST (GOT) 1243 U/L (15-37); TOTAL BILIRUBIN ADULT 0.6 MG/DL (0.2-1.0)
[2016-09-06 12:47] LABS: CREATINE KINASE GREATER THAN 14000 U/L (39-308)
[2016-09-06 13:07] LABS: CKMB 3.1 NG/ML (0.5-3.6)
[2016-09-06 16:00] VITALS: BP 132/61; PULSE 50; RESP 18; TEMP 97.7; O2SAT 97
[2016-09-06 20:00] VITALS: BP 137/59; PULSE 69; RESP 17; TEMP 97.5; O2SAT 99
[2016-09-07] VITALS: BP 134/69; PULSE 60; RESP 15; TEMP 96.5; O2SAT 99
[2016-09-07] MEDS: DEXTROSE 5% IV SCH ×12 (03:55→20:45)
[2016-09-07] MEDS: SODIUM BICARBONATE IV SCH ×12 (03:55→20:45)
[2016-09-07] MEDS: POTASSIUM CHLORIDE IV SCH ×12 (03:55→20:45)
[2016-09-07] MEDS: [UNRECOGNIZED DRUG - OTHER] IV SCH ×12 (03:55→20:45)
[2016-09-07 04:00] VITALS: BP 100/53; PULSE 57; RESP 15; TEMP 96.6; O2SAT 100
[2016-09-07 07:52] LABS: ALKALINE PHOSPHATASE 41 U/L (45-117); ALT (GPT) 541 U/L (12-78); ANION GAP 5 MEQ/L (5-15); AST (GOT) 774 U/L (15-37); BICARBONATE 34.4 MEQ/L (21.0-32.0); BLOOD UREA NITROGEN 8 MG/DL (7-18); CHLORIDE 101 MEQ/L (98-107); CREATINE KINASE 12214 U/L (39-308); GLOMERULAR FILTRATION RATE 146 ML/MIN (>89); POTASSIUM 3.9 MEQ/L (3.5-5.1); SODIUM (NA) 140 MEQ/L (136-145); TOTAL BILIRUBIN ADULT 0.4 MG/DL (0.2-1.0)
[2016-09-07 08:00] VITALS: BP 100/53; PULSE 63; RESP 18; TEMP 97.5; O2SAT 100
[2016-09-07 08:08] LABS: CKMB 2.6 NG/ML (0.5-3.6)
[2016-09-07] MEDS: ENOXAPARIN SODIUM 40 MG/0.4 ML SYRINGE SQ SCH (08:42)
[2016-09-07] MEDS: SODIUM CHLORIDE 0.9% FLUSH 5 ML FLUSH FLUSH SCH ×2 (08:59→19:56)
--- NOTE | 2016-09-07 11:58 | HHI.PR ---
Subjective Remarks Follow-up rhabdomyolysis 09/06/16-patient seen and examined, denies any muscle aches and no acute event overnight. CK on 09/05/16 still elevated 09/07/16-patient seen and examined, no complaint. CK now trending down. Hepatitis C virus positive discussed with patient about results. Patient states , At the beginning of July he donated blood to [facility] and has no issues; he denies any IVDA or STD Objective Vitals Vital Signs Date Time Temp Pulse Resp B/P Pulse Ox O2 Delivery O2 Flow Rate FiO2 09/07/16 08:00 97.5 63 18 100/53 100 09/07/16 04:00 96.6 57 15 100/53 100 09/07/16 00:00 96.5 60 15 134/69 99 09/06/16 20:00 97.5 69 17 137/59 99 09/06/16 16:00 97.7 50 18 132/61 97 09/06/16 12:00 98.2 71 18 126/79 98 I/O 09/06/16 09/06/16 09/06/16 09/07/16 09/07/16 09/07/16 07:00 15:00 23:00 07:00 15:00 23:00 Intake Total 2320 ml 1080 ml 4721 ml Output Total 4 ml 1500 ml Balance 2320 ml 1076 ml 3221 ml Intake Oral 720 ml 1080 ml 480 ml IV Total 1600 ml 4241 ml Output Urine Total 4 ml 1500 ml # Voids 3 1 Result Diagram: 09/04/16 0556 09/07/16 0603 Objective Remarks GENERAL: NAD SKIN: Warm and dry. HEAD: Normocephalic. EYES: No scleral icterus. No injection or drainage. NECK: Supple, trachea midline. No JVD or lymphadenopathy. CARDIOVASCULAR: Regular rate and rhythm without murmurs, gallops, or rubs. RESPIRATORY: Breath sounds equal bilaterally. No accessory muscle use. GASTROINTESTINAL: Abdomen soft, non-tender, nondistended. MUSCULOSKELETAL: No cyanosis, or edema. BACK: Nontender without obvious deformity. No CVA tenderness. A/P Problem List: (1) Rhabdomyolysis ICD Code: M62.82 Status: Acute (2) Transaminitis ICD Code: R74.0 Status: Acute Assessment and Plan 21-year-old male with Rhabdomyolysis. CK trending down. Secondary to aggressive training and weight lifting. Continue D5 bicarbonate with potassium . Monitor CK Transaminitis. Hepatitic C virus positive therefore will check Genotype. declined Liver ultrasound Leukocytosis. Resolved. Likely secondary to stress. Prophylaxis. Continue Lovenox. Problem Qualifiers (1) Rhabdomyolysis: Qualified Code: M62.82 - Non-traumatic rhabdomyolysis Ab Fink MD Sep 07, 2016 11:58
[2016-09-07 12:00] VITALS: BP 102/69; PULSE 63; RESP 18; TEMP 97.4; O2SAT 98
[2016-09-07 16:00] VITALS: BP 134/79; PULSE 63; RESP 18; TEMP 96.1; O2SAT 98
[2016-09-07 20:00] VITALS: BP 114/81; PULSE 70; RESP 16; TEMP 98; O2SAT 97
[2016-09-08] VITALS: BP 116/59; PULSE 73; RESP 16; TEMP 96.6; O2SAT 98
[2016-09-08] MEDS: [UNRECOGNIZED DRUG - OTHER] IV SCH ×15 (01:49→23:52)
[2016-09-08] MEDS: DEXTROSE 5% IV SCH ×15 (01:49→23:52)
[2016-09-08] MEDS: POTASSIUM CHLORIDE IV SCH ×15 (01:49→23:52)
[2016-09-08] MEDS: SODIUM BICARBONATE IV SCH ×15 (01:49→23:52)
[2016-09-08 04:00] VITALS: BP 104/68; PULSE 99; RESP 16; TEMP 95.7; O2SAT 98
[2016-09-08 07:50] VITALS: BP 122/77; PULSE 57; RESP 20; TEMP 96; O2SAT 100
[2016-09-08] MEDS: ENOXAPARIN SODIUM 40 MG/0.4 ML SYRINGE SQ SCH (09:20)
[2016-09-08] MEDS: SODIUM CHLORIDE 0.9% FLUSH 5 ML FLUSH FLUSH SCH ×2 (09:20→21:45)
--- NOTE | 2016-09-08 09:29 | HHI.PR ---
Subjective Remarks Follow-up rhabdomyolysis 09/06/16-patient seen and examined, denies any muscle aches and no acute event overnight. CK on 09/05/16 still elevated 09/07/16-patient seen and examined, no complaint. CK now trending down. Hepatitis C virus positive discussed with patient about results. Patient states , At the beginning of July he donated blood to [facility] and has no issues; he denies any IVDA or STD 09/08/16-patient seen and examined, stable and no complaint. Objective Vitals Vital Signs Date Time Temp Pulse Resp B/P Pulse Ox O2 Delivery O2 Flow Rate FiO2 09/08/16 07:50 96.0 57 20 122/77 100 09/08/16 04:00 95.7 99 16 104/68 98 09/08/16 00:00 96.6 73 16 116/59 98 09/07/16 20:00 98.0 70 16 114/81 97 09/07/16 16:00 96.1 63 18 134/79 98 09/07/16 12:00 97.4 63 18 102/69 98 I/O 09/07/16 09/07/16 09/07/16 09/08/16 09/08/16 09/08/16 07:00 15:00 23:00 07:00 15:00 23:00 Intake Total 4721 ml 960 ml 600 ml 3530 ml Output Total 1500 ml 500 ml 2000 ml Balance 3221 ml 960 ml 100 ml 1530 ml Intake Oral 480 ml 960 ml 600 ml 450 ml IV Total 4241 ml 3080 ml Output Urine Total 1500 ml 500 ml 2000 ml # Voids 4 # Bowel Movements 1 0 0 Result Diagram: 09/04/16 0556 09/07/16 0603 Objective Remarks GENERAL: NAD SKIN: Warm and dry. HEAD: Normocephalic. EYES: No scleral icterus. No injection or drainage. NECK: Supple, trachea midline. No JVD or lymphadenopathy. CARDIOVASCULAR: Regular rate and rhythm without murmurs, gallops, or rubs. RESPIRATORY: Breath sounds equal bilaterally. No accessory muscle use. GASTROINTESTINAL: Abdomen soft, non-tender, nondistended. MUSCULOSKELETAL: No cyanosis, or edema. BACK: Nontender without obvious deformity. No CVA tenderness. A/P Problem List: (1) Rhabdomyolysis ICD Code: M62.82 Status: Acute (2) Transaminitis ICD Code: R74.0 Status: Acute Assessment and Plan 21-year-old male with Rhabdomyolysis. CK trending down. Secondary to aggressive training and weight lifting. Continue D5 bicarbonate with potassium . Monitor CK Transaminitis. Hepatitic C virus positive therefore will check Genotype. declined Liver ultrasound Hepatitis C antibody positive: HCV PCR and genotype pending Leukocytosis. Resolved. Likely secondary to stress. Prophylaxis. Continue Lovenox. Problem Qualifiers (1) Rhabdomyolysis: Qualified Code: M62.82 - Non-traumatic rhabdomyolysis Ab Fink MD Sep 08, 2016 09:29
[2016-09-08 10:53] LABS: ALKALINE PHOSPHATASE 41 U/L (45-117); ALT (GPT) 516 U/L (12-78); ANION GAP 5 MEQ/L (5-15); AST (GOT) 557 U/L (15-37); BICARBONATE 34.5 MEQ/L (21.0-32.0); BLOOD UREA NITROGEN 9 MG/DL (7-18); CHLORIDE 100 MEQ/L (98-107); CREATINE KINASE 7253 U/L (39-308); GLOMERULAR FILTRATION RATE 134 ML/MIN (>89); POTASSIUM 4.2 MEQ/L (3.5-5.1); SODIUM (NA) 139 MEQ/L (136-145); TOTAL BILIRUBIN ADULT 0.4 MG/DL (0.2-1.0)
[2016-09-08 11:11] LABS: CKMB 3.7 NG/ML (0.5-3.6)
[2016-09-08 11:50] VITALS: BP 124/56; PULSE 71; RESP 20; TEMP 97; O2SAT 99
[2016-09-08 15:50] VITALS: BP 131/69; PULSE 62; RESP 20; TEMP 96.9; O2SAT 98
[2016-09-08 21:16] VITALS: BP 122/91; PULSE 72; RESP 16; TEMP 97; O2SAT 98
[2016-09-09 00:02] VITALS: BP 126/76; PULSE 61; RESP 16; TEMP 97.4; O2SAT 98
[2016-09-09 04:00] VITALS: PULSE 94; RESP 16; TEMP 96.4; O2SAT 100
[2016-09-09] MEDS: SODIUM BICARBONATE IV SCH ×3 (06:35)
[2016-09-09] MEDS: POTASSIUM CHLORIDE IV SCH ×3 (06:35)
[2016-09-09] MEDS: DEXTROSE 5% IV SCH ×3 (06:35)
[2016-09-09] MEDS: [UNRECOGNIZED DRUG - OTHER] IV SCH ×3 (06:35)
[2016-09-09 07:50] VITALS: BP 113/66; PULSE 51; RESP 20; TEMP 96.3; O2SAT 100
[2016-09-09 08:57] LABS: ALKALINE PHOSPHATASE 41 U/L (45-117); ALT (GPT) 476 U/L (12-78); ANION GAP 7 MEQ/L (5-15); AST (GOT) 419 U/L (15-37); BICARBONATE 33.3 MEQ/L (21.0-32.0); BLOOD UREA NITROGEN 9 MG/DL (7-18); CHLORIDE 99 MEQ/L (98-107); CREATINE KINASE 5144 U/L (39-308); GLOMERULAR FILTRATION RATE 138 ML/MIN (>89); POTASSIUM 3.6 MEQ/L (3.5-5.1); SODIUM (NA) 139 MEQ/L (136-145); TOTAL BILIRUBIN ADULT 0.4 MG/DL (0.2-1.0)
[2016-09-09] MEDS: SODIUM CHLORIDE 0.9% FLUSH 5 ML FLUSH FLUSH SCH (08:58)
--- NOTE | 2016-09-09 08:58 | HHI.PR ---
Subjective Remarks Follow-up rhabdomyolysis 09/06/16-patient seen and examined, denies any muscle aches and no acute event overnight. CK on 09/05/16 still elevated 09/07/16-patient seen and examined, no complaint. CK now trending down. Hepatitis C virus positive discussed with patient about results. Patient states , At the beginning of July he donated blood to [facility] and has no issues; he denies any IVDA or STD 09/08/16-patient seen and examined, stable and no complaint. 09/09/16-patient seen and examined; No acute event overnight. CK pending this AM however as of yesterday was trending down Objective Vitals Vital Signs Date Time Temp Pulse Resp B/P Pulse Ox O2 Delivery O2 Flow Rate FiO2 09/09/16 07:50 96.3 51 20 113/66 100 09/09/16 04:00 96.4 94 16 100 09/09/16 00:02 97.4 61 16 126/76 98 09/08/16 21:16 97.0 72 16 122/91 98 09/08/16 15:50 96.9 62 20 131/69 98 09/08/16 11:50 97.0 71 20 124/56 99 I/O 09/08/16 09/08/16 09/08/16 09/09/16 09/09/16 09/09/16 07:00 15:00 23:00 07:00 15:00 23:00 Intake Total 3530 ml 1749 ml 2428 ml 1550 ml Output Total 2000 ml 200 ml 900 ml 800 ml Balance 1530 ml 1549 ml 1528 ml 750 ml Intake Oral 450 ml 480 ml 360 ml 250 ml IV Total 3080 ml 1269 ml 2068 ml TPN/PPN 1300 ml Output Urine Total 2000 ml 200 ml 900 ml 800 ml # Voids 4 # Bowel Movements 0 0 0 1 Result Diagram: 09/08/16 0858 Objective Remarks GENERAL: NAD SKIN: Warm and dry. HEAD: Normocephalic. EYES: No scleral icterus. No injection or drainage. NECK: Supple, trachea midline. No JVD or lymphadenopathy. CARDIOVASCULAR: Regular rate and rhythm without murmurs, gallops, or rubs. RESPIRATORY: Breath sounds equal bilaterally. No accessory muscle use. GASTROINTESTINAL: Abdomen soft, non-tender, nondistended. MUSCULOSKELETAL: No cyanosis, or edema. BACK: Nontender without obvious deformity. No CVA tenderness. A/P Problem List: (1) Rhabdomyolysis ICD Code: M62.82 Status: Acute (2) Transaminitis ICD Code: R74.0 Status: Acute Assessment and Plan 21-year-old male with Rhabdomyolysis. Resolved. CK trending down. Secondary to aggressive training and weight lifting. Continue D5 bicarbonate with potassium . Monitor CK Transaminitis. Hepatitic C virus positive therefore will check Genotype. declined Liver ultrasound Hepatitis C antibody positive: HCV PCR and genotype pending Leukocytosis. Resolved. Likely secondary to stress. Prophylaxis. Continue Lovenox. Problem Qualifiers (1) Rhabdomyolysis: Qualified Code: M62.82 - Non-traumatic rhabdomyolysis Ab Fink MD Sep 09, 2016 08:58
--- NOTE | 2016-09-09 08:59 | HHI.DS ---
Discharge Summary Admission Date Sep 01, 2016 at 00:26 Discharge Date: Sep 09, 2016 Admitting Diagnosis rhabdomyolysis (1) Rhabdomyolysis ICD Code: M62.82 (2) Transaminitis ICD Code: R74.0 Procedures None Brief History - From Admission History from patient, ER physician to medication, and review of medical records. Patient reported that he initially came to the hospital because his urine color was so dark that it looks like [employer]. He reports he also was not able to lift up his arms because they have been so painful. He states his arm size is actually increased bilaterally. He admits to working out with heavy weight lifting about 3-4 hours a day. Denies fever. denies any nausea/vomiting/diarrhea/urinary burning or pain on urination. denies any decrease in urine. Denies any chest pain/palpitations/shortness of breath/syncopal episodes. Denies any falls or seizures. Denies any hematemesis/hematochezia/melena/hematuria. CBC/BMP: 09/08/16 0858 Significant Findings Laboratory Tests Test 09/06/16 09/07/16 09/08/16 11:07 06:03 08:58 Carbon Dioxide Level 33.8 MEQ/L 34.4 MEQ/L 34.5 MEQ/L (21.0-32.0) (21.0-32.0) (21.0-32.0) Aspartate Amino Transf 1243 U/L 774 U/L (15-37) 557 U/L (15-37) (AST/SGOT) (15-37) Alanine Aminotransferase 691 U/L (12-78) 541 U/L (12-78) 516 U/L (12-78) (ALT/SGPT) Alkaline Phosphatase 44 U/L (45-117) 41 U/L (45-117) 41 U/L (45-117) Total Creatine Kinase GREATER THAN 73075 U/L 7253 U/L 86892 U/L (39-308) (39-308) (39-308) Albumin 3.3 GM/DL 2.8 GM/DL 2.9 GM/DL (3.4-5.0) (3.4-5.0) (3.4-5.0) Total Protein 5.9 GM/DL 6.1 GM/DL (6.4-8.2) (6.4-8.2) Calcium Level 8.4 MG/DL (8.5-10.1) Creatine Kinase MB 3.7 NG/ML (0.5-3.6) PE at Discharge GENERAL: NAD SKIN: Warm and dry. HEAD: Normocephalic. EYES: No scleral icterus. No injection or drainage. NECK: Supple, trachea midline. No JVD or lymphadenopathy. CARDIOVASCULAR: Regular rate and rhythm without murmurs, gallops, or rubs. RESPIRATORY: Breath sounds equal bilaterally. No accessory muscle use. GASTROINTESTINAL: Abdomen soft, non-tender, nondistended. MUSCULOSKELETAL: No cyanosis, or edema. BACK: Nontender without obvious deformity. No CVA tenderness. Hospital Course Rhabdomyolysis. CK trending down. Secondary to aggressive training and weight lifting. Continue D5 bicarbonate with potassium . Monitor CK Transaminitis. Hepatitic C virus positive therefore will check Genotype. declined Liver ultrasound Hepatitis C antibody positive: HCV PCR and genotype pending Leukocytosis. Resolved. Likely secondary to stress. Prophylaxis. Continue Lovenox. Pt Condition on Discharge: Stable Discharge Disposition: Discharge Home Discharge Time: <= 30 minutes Discharge Instructions DIET: Follow Instructions for: As Tolerated, No Restrictions Activities you can perform: Regular-No Restrictions Follow up Referrals: PCP Follow-up - 1 Week Medication Profile: No Active Prescriptions or Reported Ab Reed MD Sep 09, 2016 08:59
[2016-09-10 11:54] LABS: HCV RNA PCR IU/ML LESS THAN 15 IU/mL (()); HCV RNA PCR LOGIU/ML LESS THAN 1.18 (())
[2016-09-10 19:52] LABS: HEPATITIS C RNA GENOTYPE NOT DETECTED (())
== END 2016-09-09 12:23 | disposition home or self-care (01) | DRG 558 ==
LOC: NEPB 18:07 → OBSVTOIN 09-01 00:26 → NEDA 09-01 00:26 → HOCB 09-01 14:24
PROVIDERS: ADMIT Hospitalist; ATTEND Hospitalist
DX: M62.82 Rhabdomyolysis (principal); B19.20 Unspecified viral hepatitis C without hepatic coma; R74.0 Nonspecific elevation of levels of transaminase and lactic acid dehydrogenase [LDH]; D72.829 Elevated white blood cell count, unspecified; E86.0 Dehydration
CPT/HCPCS: 80048; 80053; 80069; 80074; 80076; 80307; 81001; 82550; 82552; 83735; 84439; 84443; 85025; 85610; 85652; 86038; 87522; 87902; 96360; 96361; J1650; J3480; J7030; J7070